=== PATIENT | female | born 1940 | race Two or more races ===

== ENCOUNTER 2017-03-13 10:28 | Inpatient (IN) | payer MEDICAID ==
[~2017-03-13] VITALS: Ht 152.4 cm; Wt 62.4 kg
[2017-03-13 11:29] LABS: Basophils # (auto) 0.1 uL; Basophils % (auto) 0.5 % (0.0-2.0); Eosinophils # (auto) 0 uL; Eosinophils % (auto) 0.4 % (0.0-7.0); Hematocrit 45.5 % (36.0-46.0); Hemoglobin 15.4 g/dL (12.2-16.2); Lymphocytes % (auto) 17.2 % (10.0-50.0); Mean Corpuscular Hemoglobin 30.6 pg (28.0-32.0); Mean Corpuscular Hgb Conc. 33.9 g/dL (32.0-36.0); Mean Corpuscular Volume 90.4 fL (80.0-100.0); Monocytes # (auto) 1.1 uL; Monocytes % (auto) 9.5 % (0.0-12.0); Neutrophils # (auto) 8.3 uL; Neutrophils % (auto) 72.4 % (37.0-80.0); Platelet Count (auto) 273 10^3/uL (140-450); Red Blood Cells 5.04 10^6/uL (4.0-5.20); Red Cell Distribution Width 12.7 % (11.8-14.3); White Blood Cell 11.4 10^3/uL (4.4-10.8)
[2017-03-13 11:44] LABS: Urine Bacteria NONE SEEN /hpf (None Seen); Urine Blood 1+ /uL (Negative); Urine Mucus FEW (None Seen); Urine Specific Gravity 1.027 (1.001-1.035); Urine WBC 26 /hpf (0 - 5)
[2017-03-13 11:54] LABS: Alanine Aminotransferase 21 U/L (13-56); Albumin 3.9 g/dL (3.4-5.0); Alkaline Phosphatase 94 U/L (45-117); Anion Gap 7 (5-15); Aspartate Aminotransferase 21 U/L (15-37); BUN/Creatinine Ratio 18.8; Blood Urea Nitrogen 19 mg/dL (7-18); Calcium 8.8 mg/dL (8.5-10.1); Carbon Dioxide 26 mmol/L (21-32); Chloride 103 mmol/L (98-107); GFR African American 69 mL/min; GFR Non-African American 57 mL/min; Glucose 153 mg/dL (74-106); Potassium 3.7 mmol/L (3.5-5.1); Sodium 136 mmol/L (136-145); Total Protein 8.6 g/dL (6.4-8.2)
[2017-03-13] MEDS ORDERED: cefTRIAXone 1GM/10ml IVPUSH 10 ML IV ONE (13:45)
[2017-03-13] MEDS ORDERED: metroNIDAZOLE 500MG/100ML 100 ML IV ONE (14:45)
[2017-03-13] MEDS ORDERED: KETOROLAC TROMETH 30 MG/ML 1ML VIAL IV ONE (14:45)
[2017-03-13] MEDS ORDERED: HYDROcodone-ACET 5/325MG TAB PO PRN (15:15)
[2017-03-13] MEDS ORDERED: NITROGLYCERIN 0.4 MG SL TAB SL PRN (15:15)
[2017-03-13] MEDS ORDERED: MORPHINE SULF INJ 2 MG/ML SYRINGE 1ML IV PRN ×2 (15:15→16:15)
[2017-03-13] MEDS ORDERED: ACETAMINOPHEN 500 MG TAB PO PRN (15:15)
[2017-03-13] MEDS ORDERED: TEMAZEPAM 15 MG CAP PO PRN (15:15)
[2017-03-13] MEDS ORDERED: PROMETHAZINE HCL 25 MG/ML 1ML IV PRN (15:15)
[2017-03-13] MEDS ORDERED: LORazepam 0.5 MG TAB PO PRN (15:15)
[2017-03-13 15:16] LABS: INR 0.97 (0.9-1.15); Partial Thromboplastin Time 26.3 sec (22.64-33.71); Prothrombin Time 10.6 sec (9.37-12.3)
[2017-03-13] MEDS ORDERED: ASPirin 81 mg TAB PO ONE (16:15)
[2017-03-13 17:00] VITALS: BP 143/77
[2017-03-13] MEDS ORDERED: LOSA100T27 PO (17:44)
[2017-03-13] MEDS: FAMOTIDINE (10MG/ML) 2ML VL IV SCH (17:51)
[2017-03-13] MEDS: METOPROLOL TARTRATE 25 MG TAB PO SCH ×2 (17:52→21:37)
[2017-03-13 18:08] VITALS: BP 143/77
[2017-03-13] MEDS: SODIUM CHLORIDE 0.9% 1,000 ML IV SCH (20:35)
[2017-03-13] MEDS: metroNIDAZOLE 500MG/100ML 100 ML IV SCH (20:35)
[2017-03-13] MEDS: ATORVASTATIN 20 MG TAB PO SCH (21:36)
[2017-03-13 22:00] VITALS: BP 107/71
[2017-03-14] MEDS: SODIUM CHLORIDE 0.9% 1,000 ML IV SCH ×3 (01:10→20:22)
[2017-03-14] MEDS: metroNIDAZOLE 500MG/100ML 100 ML IV SCH ×4 (02:57→20:31)
[2017-03-14] MEDS: FAMOTIDINE (10MG/ML) 2ML VL IV SCH ×2 (02:58→16:19)
[2017-03-14 04:48] LABS: Basophils # (auto) 0.1 uL; Basophils % (auto) 0.9 % (0.0-2.0); Eosinophils # (auto) 0.1 uL; Eosinophils % (auto) 1.9 % (0.0-7.0); Hematocrit 38.3 % (36.0-46.0); Lymphocytes # (auto) 2.2 uL; Lymphocytes % (auto) 31.1 % (10.0-50.0); Mean Corpuscular Hemoglobin 30.7 pg (28.0-32.0); Mean Corpuscular Volume 90.4 fL (80.0-100.0); Monocytes % (auto) 13.2 % (0.0-12.0); Neutrophils # (auto) 3.8 uL; Neutrophils % (auto) 52.9 % (37.0-80.0); Nucleated Red Blood Cells % 0.1 %; Platelet Count (auto) 219 10^3/uL (140-450); Red Blood Cells 4.24 10^6/uL (4.0-5.20); Red Cell Distribution Width 12.6 % (11.8-14.3); White Blood Cell 7.2 10^3/uL (4.4-10.8)
[2017-03-14 05:06] LABS: Cholesterol 160 mg/dL (< 200); HDL Cholesterol 58 mg/dL (40-59); LDL Cholesterol 103 mg/dL (< 100); Triglycerides 94 mg/dL (< 150)
[2017-03-14 05:08] VITALS: BP 110/46
[2017-03-14 09:01] VITALS: BP 136/78
[2017-03-14] MEDS: cefTRIAXone 1GM/10ml IVPUSH 10 ML IV SCH (09:04)
[2017-03-14] MEDS: NITROGLYCERIN 0.2MG/HR TOPICAL PATCH TD SCH (10:00)
[2017-03-14] MEDS: METOPROLOL TARTRATE 25 MG TAB PO SCH ×2 (10:00→21:31)
[2017-03-14] MEDS: ASPirin 81 mg TAB PO SCH (10:10)
[2017-03-14 13:00] VITALS: BP 138/87
[2017-03-14 16:45] VITALS: BP 153/84
[2017-03-14] MEDS: ATORVASTATIN 20 MG TAB PO SCH (21:30)
[2017-03-14 21:35] VITALS: BP 162/97
[2017-03-15] MEDS: metroNIDAZOLE 500MG/100ML 100 ML IV SCH ×4 (02:39→20:34)
[2017-03-15] MEDS: FAMOTIDINE (10MG/ML) 2ML VL IV SCH (02:51)
[2017-03-15 05:00] VITALS: BP 154/80
[2017-03-15] MEDS ORDERED: ADENOSINE 57 MG in GIVE UN-DILUTED 0 ML IV STA (08:02)
[2017-03-15 08:14] VITALS: BP 138/76
[2017-03-15] MEDS: ASPirin 81 mg TAB PO SCH (09:54)
[2017-03-15] MEDS: SODIUM CHLORIDE 0.9% 1,000 ML IV SCH (09:54)
[2017-03-15] MEDS: cefTRIAXone 1GM/10ml IVPUSH 10 ML IV SCH (09:54)
[2017-03-15] MEDS: METOPROLOL TARTRATE 25 MG TAB PO SCH ×2 (10:00→21:34)
[2017-03-15] MEDS: NITROGLYCERIN 0.2MG/HR TOPICAL PATCH TD SCH (10:00)
[2017-03-15 10:54] VITALS: BP 167/92
[2017-03-15 12:30] VITALS: BP 163/94
[2017-03-15] MEDS ORDERED: LOSARTAN POTASSIUM 50 MG TAB PO ONE (15:15)
[2017-03-15 16:06] VITALS: BP 162/93
[2017-03-15] MEDS: ATORVASTATIN 20 MG TAB PO SCH (21:34)
[2017-03-15 22:00] VITALS: BP 154/90
[2017-03-16] MEDS: metroNIDAZOLE 500MG/100ML 100 ML IV SCH ×2 (02:40→08:42)
[2017-03-16 05:00] VITALS: BP 157/96
[2017-03-16 08:12] VITALS: BP 174/71
[2017-03-16] MEDS: cefTRIAXone 1GM/10ml IVPUSH 10 ML IV SCH (08:42)
[2017-03-16] MEDS: ASPirin 81 mg TAB PO SCH (08:42)
[2017-03-16] MEDS: METOPROLOL TARTRATE 25 MG TAB PO SCH (08:43)
[2017-03-16] MEDS: NITROGLYCERIN 0.2MG/HR TOPICAL PATCH TD SCH (08:44)
[2017-03-16 08:49] VITALS: BP 174/71
[2017-03-16] MEDS ORDERED: LOSARTAN POTASSIUM 50 MG TAB PO SCH (10:00)
[2017-03-16] MEDS ORDERED: METR500T PO (11:04)
[2017-03-16] MEDS ORDERED: AML5T PO (11:04)
[2017-03-16] MEDS ORDERED: MET25T PO (11:04)
[2017-03-16] MEDS ORDERED: AMOX500T86 PO (11:06)
[2017-03-16] MEDS ORDERED: ASPI81CH43 PO (11:07)
[2017-03-16] MEDS ORDERED: ATOR20TA50 PO (11:07)
[2017-03-16] MEDS ORDERED: amLODIPine BESYLATE 5 MG TAB PO ONE (11:15)
[2017-03-16 11:51] VITALS: BP 166/67
[2017-03-16 12:58] VITALS: BP 166/67
[2017-03-16] MEDS ORDERED: metroNIDAZOLE 500MG/100ML 100 ML IV SCH (14:00)
== END 2017-03-16 13:09 | disposition home or self-care (01) | DRG 244 ==
LOC: ER 10:28 → TELE 10:29 → TELE-WESTW 16:51
PROVIDERS: ADMIT Internal Medicine; ATTEND Internal Medicine
DX: K57.32 Diverticulitis of large intestine without perforation or abscess without bleeding (principal); I45.81 Long QT syndrome; N39.0 Urinary tract infection, site not specified; I10 Essential (primary) hypertension; I25.10 Atherosclerotic heart disease of native coronary artery without angina pectoris; E78.1 Pure hyperglyceridemia; I73.9 Peripheral vascular disease, unspecified; R73.9 Hyperglycemia, unspecified; K57.30 Diverticulosis of large intestine without perforation or abscess without bleeding; Z79.899 Other long term (current) drug therapy; Z83.3 Family history of diabetes mellitus; Z79.82 Long term (current) use of aspirin
CPT/HCPCS: 36415; 71046; 74176; 76830; 76856; 78452; 80053; 80061; 81001; 82962; 83036; 83735; 84484; 85025; 85610; 85730; 87086; 93005; 93017; 93306; 94761; 96374; 96375; J0153; J1885; J3490

== ENCOUNTER 2017-06-25 08:41 | Day surgery (SDC) | payer MEDICAID ==
[2017-06-22 11:15] LABS: Basophils # (auto) 0.1 uL; Eosinophils # (auto) 0.2 uL; Eosinophils % (auto) 2.5 % (0.0-7.0); Hematocrit 42.7 % (36.0-46.0); Hemoglobin 14.3 g/dL (12.2-16.2); Lymphocytes # (auto) 2.7 uL; Lymphocytes % (auto) 40.6 % (10.0-50.0); Mean Corpuscular Hemoglobin 30.9 pg (28.0-32.0); Mean Corpuscular Hgb Conc. 33.4 g/dL (32.0-36.0); Mean Corpuscular Volume 92.4 fL (80.0-100.0); Monocytes # (auto) 0.6 uL; Monocytes % (auto) 9.7 % (0.0-12.0); Neutrophils % (auto) 46.2 % (37.0-80.0); Nucleated Red Blood Cells % 0.1 %; Platelet Count (auto) 244 10^3/uL (140-450); Red Blood Cells 4.62 10^6/uL (4.0-5.20); Red Cell Distribution Width 13.5 % (11.8-14.3); White Blood Cell 6.6 10^3/uL (4.4-10.8)
[2017-06-22 11:34] LABS: INR 0.95 (0.9-1.15); Partial Thromboplastin Time 24.5 sec (22.64-33.71); Prothrombin Time 10.4 sec (9.37-12.3)
[~2017-06-25] VITALS: Ht 160 cm; Wt 61.2 kg
[~2017-06-25 08:41] MED LIST: AML5T PO; ASPI81CH43 PO; ATOR20TA50 PO; LOSA100T27 PO; MET25T PO
[2017-06-25] MEDS ORDERED: diphenhdrAMINE HCL 50 MG/1 ML VL ONE (08:47)
[2017-06-25] MEDS ORDERED: MIDAZOLAM HCL 5 MG/ML-1ML VIAL ONE (08:47)
[2017-06-25] MEDS ORDERED: fentaNYL CITRATE 100 MCG/2 ML VL ONE (08:48)
[2017-06-25 10:34] VITALS: BP 123/67
== END 2017-06-25 10:37 | disposition home or self-care (01) ==
LOC: GI 08:41
PROVIDERS: ATTEND Internal Medicine Gastroenterology
DX: Z12.11 Encounter for screening for malignant neoplasm of colon (principal); K64.8 Other hemorrhoids; K57.30 Diverticulosis of large intestine without perforation or abscess without bleeding; I10 Essential (primary) hypertension; E78.5 Hyperlipidemia, unspecified; E66.9 Obesity, unspecified
CPT/HCPCS: 45378; J1200; J3010; 36415; 85025; 85610; 85730; 99152; J2250